=== PATIENT | female | born 1990 | race Caucasian/White ===

== ENCOUNTER → 2018-05-11 | Outpatient (CLI) | payer OTHER ==
[~2018-05-11] MED LIST: ACETAMINOPHEN-1 EAC1; BACTRIM DS TAB1 EACH PO; BIRTH CONTROL; CELEXA10 MG; FLAGYL500 MG PO; FLEXERIL PO; IBUPROFEN 800800 M1; KEFLEX500 MG PO; NEURONTIN 300300 M1; NOHOMEMEDICATIONS; NORCO 5-325 TA1 EACH PO; PERCOCET 5-3251 EACH PO; PRENATABS RX T1 EAC1; SERTRALINE HCL50 MG PO; TRAMADOL 50 MG50 MG PO; ZPAK PO
--- NOTE | ~2018-05-11 | PAINCON ---
[address] [address] PAIN MANAGEMENT CONSULTATION Name: ANALI ROSAS Room: [facility] GABRIELA Palomo#: [id number] Admission: 05/11/18 Attend Phys: Rafael Dorantes MD Discharge: Date of : 88 Report #: [id number] THIS REPORT FOR: //name// CC: LISA San DATE OF SERVICE: 05/18/2018 CHIEF COMPLAINT: Back pain with pain down into my left leg. FOLLOWUP HISTORY: The patient is a 28-year-old female who has been experiencing pain and discomfort, which has been problematic over the last 2-1/2 years. She states that the pain is excruciating at times. It radiates down into her back, into the leg with a burning sensation which aches. She finds it is hard to stand for any prolonged period of time. Pain is exacerbated with moving, sometimes lying on her stomach can be problematic. Pain is somewhat improved sometimes with use of a heating pad, medications. Describes as continuous, steady, constant, shooting, burning, aching, throbbing, sharp, stabbing and tender. She was told that she has nerve injury after giving . The patient has come to the [facility] for evaluation with the possibility of undergoing an epidural steroid injection to help control her chronic pain. She is breast feeding and this limits her ability to take certain medications. ALLERGIES: COMPAZINE, PERCOCET. CURRENT MEDICATIONS: Zoloft 50 mg daily, ibuprofen, occasional vitamins, control. PAST MEDICAL HISTORY: Gestational diabetes. PAST SURGICAL HISTORY: Denies surgery. 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 REVIEW OF SYSTEMS: Questionnaire, generally good health, recent weight change, headaches, wears glasses, weakness of muscles and joints, muscle pain and cramps, back pain, difficulty walking; varicose veins; frequent recurring headaches, lightheadedness, dizziness, nervousness, depression. LABORATORY DATA: MRI of the lumbar spine dated 03/04/2016. There is very subtle retrolisthesis of L5 on S1. Alignment and curvature: Otherwise within normal limits. No compression deformities were identified. Bone marrow signal within normal limits. L5-S1, there is a mild disk height loss and the hydration with a small broad-based protrusion and a tear within the posterior annulus. The protrusion abuts the descending S1 nerve and the lateral recess, [place] [address] PAIN MANAGEMENT CONSULTATION Name: ANALI ROSAS Room: [facility]#: [id number] Admission: 05/11/18 Attend Phys: Rafael Dorantes MD Discharge: Date of : 88 Report #: [id number] not cause significant mass effect upon them. The neural foramen are maintained. At L4-L5, there is no spinal stenosis. The remaining intervertebral levels are well maintained. PAIN CLINIC ASSESSMENT/PQRS: 1. The patient has not been treated for rheumatoid arthritis or osteoarthritis. 2. Height 5 feet 7 inches, weight 272 pounds, BMI is 42. 3. Vital signs: Blood pressure 109/65, heart rate 68, respiratory rate 18, room air saturation 96%. 4. Temperature 98.3. 5. Pain intensity 10. 6. Fall risk. The patient has not fallen in the last 3 months. 7. Blood thinner. The patient is not on a blood thinning medication. 8. Hypertension. The patient is not being treated for hypertension. 9. Opioid is greater than 6 weeks. The patient is not on opioid regimen. 10. Risk assessment tool, low for opioid use. 11. Functional assessment tool. The patient scores impact number is 46/70. 12. Recreational drug use. The patient denies use of recreational drugs. 13. Tobacco: The patient has not smoked. 14. Alcohol. The patient drinks alcoholic beverages on a monthly basis. PHYSICAL EXAMINATION: GENERAL: The patient is a well-developed, well-nourished white female. Somewhat obese. She is alert and oriented x 3. Her affect is appropriate. Speech is fluent. HEENT: Normocephalic, atraumatic. Extraocular eye muscles intact. Sclerae nonicteric. NECK: Without JVD or adenopathy, without bruits. LUNGS: Clear to auscultation. HEART: Regular rate. S1, S2. ABDOMEN: Protuberant. Bowel sounds present. LUNGS: Clear to auscultation without rhonchi or rales. EXTREMITIES: Upper extremity muscle strength is judged to be 5/5 for the muscle groups. MUSCULOSKELETAL: Without significant scoliosis, kyphosis or lordosis. Lower extremity muscle strength is judged to be 5/5 for the major muscle groups. Forward bending cause some increased low back discomfort. Left and right lateral bending cause a worsening of pain and discomfort on the right side. Left and right lateral rotation were not problematic. Lumbar extension cause increased low back pain and discomfort. The patient feels that standing greater than 10 minutes cause some pain and burning that radiates down the posterior portion of her leg. IMPRESSION: 1. Lumbar radiculopathy, L4-L5. 2. Obesity. [address] [address] PAIN MANAGEMENT CONSULTATION Name: ANALI ROSAS Room: [facility]#: [id number] Admission: 05/11/18 Attend Phys: Rafael Dorantes MD Discharge: Date of : 88 Report #: [id number] 3. Gestational diabetes. RECOMMENDATIONS: We discussed treatment options with the patient. Risks and benefits of an epidural steroid injection were discussed. Possible complications of the procedure were reviewed. The patient feels that her pain and discomfort, which is radiating down into her leg with numbness, weakness and sensory changes are problematic and she would like to proceed with an epidural steroid injection. The patient is unable to take some medications by mouth. She continues to breast feed her child. This limits some of her options. She states that she had used a brace on her leg after physical therapy. She would like to proceed with an epidural steroid injection to help improve her level of comfort and decrease the chronic left leg pain she has been experiencing over the last few years, which has worsened over the last few months. We would like to thank you for letting us participate in her care. We hope she continues to improve. By: [id number] 0001Rafael Dorantes MD /nt
== END ==
LOC: M.PC 04-20 05:30
DX: M54.16 Radiculopathy, lumbar region (principal); E66.9 Obesity, unspecified; O24.410 Gestational diabetes mellitus in pregnancy, diet controlled